=== PATIENT | male | born 1970 | race Caucasian/White ===

== ENCOUNTER 2016-09-26 06:58 | Emergency (ER) | payer MEDICAID ==
[2016-09-26] MEDS ORDERED: NAPROXEN 250 MG TABLET PO ONE (07:22)
--- NOTE | 2016-09-26 07:22 | Emergency Department Record ---
History of Present Illness - General Chief complaint: Extremity Problem Stated complaint: LT HAND PAIN AND ARM PIT PAIN Time Seen by Provider: 09/26/16 07:13 Source: Patient Mode of Arrival: Ambulatory Limitations: No limitations - History of Present Illness Initial comments: 46 yo male presents with left hand pain for several weeks that seems to be worse at night. He gets tingling in the index, middle and some on the ring finger. No new trauma. 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 No new trauma. Onset/Timin -: Week(s) Location: Left, Hand, Other History of Same: No Consistency: Intermittent Improves with: Nothing Worsens with: Other Associated Symptoms: Denies other symptoms - Related Data Home Medications Medication Instructions Recorded Confirmed Last Taken Methadone HCl 40 mg PO DAILY 09/26/16 09/26/16 Unknown Previous Rx's Medication Instructions Recorded Methylprednisolone [Medrol Dose 4 mg PO DAILY #1 tab.ds.[email or web address] 09/26/16 Pack] Naproxen [Naprosyn] 500 mg PO Q12H #30 tab. 09/26/16 Allergies Allergy/AdvReac Type Severity Reaction Status Date / Time sulfamethoxazole Allergy HIVES Verified 09/26/16 07:08 [From Bactrim] trimethoprim [From Bactrim] Allergy HIVES Verified 09/26/16 07:08 Travel Screening - Travel/Exposure Within Last 30 Days Have you traveled within the last 30 days?: No Review of Systems Constitutional: Denies: Chills, Fever, Malaise, Weakness Eyes: Denies: Eye discharge ENT: Denies: Congestion Respiratory: Denies: Cough Cardiovascular: Denies: Chest pain, Palpitations, Syncope Endocrine: Denies: Fatigue Gastrointestinal: Denies: Abdominal pain, Diarrhea, Nausea, Vomiting Genitourinary: Denies: Dysuria, Frequency, Hematuria Musculoskeletal: Reports: Myalgia. Denies: Arthralgia, Back pain Skin: Denies: Bruising, Change in color, Rash Neurological: Denies: Confusion, Headache, Numbness Psychiatric: Denies: Anxiety Hematological/Lymphatic: Denies: Blood Clots, Easy bleeding, Easy bruising Past Medical History - SOCIAL HISTORY Smoking Status: Current every day smoker Alcohol Use: Occassional Drug Use: None - RESPIRATORY Hx Respiratory Disorders: Yes Hx Pneumonia: Yes - CARDIOVASCULAR Hx Cardio Disorders: No - NEURO Hx Neuro Disorders: No - GI Hx GI Disorders: No - Hx Genitourinary Disorders: No - ENDOCRINE Hx Endocrine Disorders: No - MUSCULOSKELETAL Hx Musculoskeletal Disorders: No - PSYCH Hx Psych Problems: No - HEMATOLOGY/ONCOLOGY Hx Hematology/Oncology Disorders: No Family Medical History Any Significant Family History?: No Physical Exam - General General Appearance: Alert, Oriented x3, Cooperative, No acute distress Limitations: No limitations - Head Head exam: Normal inspection - Eye Eye exam: Normal appearance, PERRL. negative: Conjunctival injection, Periorbital swelling - ENT ENT exam: Normal exam, Mucous membranes moist Ear exam: Normal external inspection Nasal Exam: Normal inspection Mouth exam: Normal external inspection Teeth exam: Normal inspection - Neck Neck exam: Normal inspection, Full ROM. negative: Tenderness - Respiratory Respiratory exam: Normal lung sounds bilaterally. 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 negative: Tenderness - Back Back exam: Reports: Normal inspection, Full ROM. Denies: Muscle spasm, Rash noted, Tenderness - Neurological Neurological exam: Alert, Normal gait, Oriented X3, Reflexes normal - Psychiatric Psychiatric exam: Normal affect, Normal mood - Skin Skin exam: Dry, Intact, Normal color, Warm Course Vital Signs 09/26/16 07:01 Temperature 98.2 F Pulse Rate 80 Respiratory 12 Rate Blood Pressure 127/79 Pulse Ox 96 - Reevaluation(s) Reevaluation #1: The symptoms are likely carpal tunnel in nature No physical examination findings that are abnormal He will provided naprosyn, medrol and a splint 09/26/16 07:29 Disposition Disposition: Discharge Clinical Impression: Hand pain, left Condition: (1) Good Instructions: Carpal Tunnel Syndrome (ED), Carpal Tunnel Syndrome Exercises ( GEN) Additional Instructions: Use the splint for support and comfort Call to establish a new family doctor as you will need nursing home follow up Prescriptions: Methylprednisolone [Medrol Dose Pack] 4 mg PO DAILY #1 tab.ds.pk Naproxen [Naprosyn] 500 mg PO Q12H #30 tab.dr Forms: Patient Portal Access
== END 2016-09-26 07:45 | disposition home or self-care (01) ==
LOC: ER 06:58
DX: M79.642 Pain in left hand (principal); R20.2 Paresthesia of skin
CPT/HCPCS: 99282

== ENCOUNTER 2017-10-16 15:38 | Emergency (ER) | payer MEDICAID ==
--- NOTE | 2017-10-16 16:08 | Emergency Department Record ---
History of Present Illness - General Chief complaint: Extremity Problem Stated complaint: RT HAND/PALM PAIN Time Seen by Provider: 10/16/17 16:01 Source: Patient Mode of Arrival: Ambulatory Limitations: No limitations - History of Present Illness Initial comments: 47 yo male presents to ED for evaluation of intermittent pain symptoms to the ulnar aspect of the right hand. 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 Patient reports intermittent pain symptoms that resulting dropping objects or shooting pain resulting in inability to perform a task. Patient denies health problems at his baseline, just bought some Advil to take for his symptoms. MD Complaint: Extremity pain Onset/Timin -: Year(s) Location: Right, Hand History of Same: No Radiation: Proximal Severity scale (1-10): 3 Quality: Sharp Consistency: Intermittent Improves with: Nothing Worsens with: Nothing Associated Symptoms: Denies other symptoms - Related Data Previous Rx's Medication Instructions Recorded Prednisone [Prednisone 20Mg] 20 mg PO BID #15 tab 10/16/17 Allergies Allergy/AdvReac Type Severity Reaction Status Date / Time sulfamethoxazole Allergy HIVES Verified 10/16/17 16:00 [From Bactrim] trimethoprim [From Bactrim] Allergy HIVES Verified 10/16/17 16:00 Travel Screening - Travel/Exposure Within Last 30 Days Have you traveled within the last 30 days?: No Review of Systems Constitutional: Denies: Chills, Fever, Malaise, Night sweats Eyes: Denies: Eye discharge, Eye pain ENT: Denies: Congestion, Ear pain, Epistaxis Respiratory: Denies: Cough, Dyspnea Cardiovascular: Denies: Chest pain, Dyspnea on exertion Endocrine: Denies: Fatigue, Heat or cold intolerance Gastrointestinal: Denies: Abdominal pain, Nausea, Vomiting Genitourinary: Denies: Incontinence, Retention Musculoskeletal: Reports: Arthralgia. Denies: Back pain, Gout, Joint swelling Skin: Denies: Bruising, Change in color Neurological: Denies: Abnormal gait, Confusion, Headache, Seizure Psychiatric: Denies: Anxiety Hematological/Lymphatic: Denies: Anemia, Blood Clots Past Medical History - SOCIAL HISTORY Smoking Status: Current every day smoker Alcohol Use: None Drug Use: None - RESPIRATORY Hx Respiratory Disorders: Yes Hx Pneumonia: Yes - CARDIOVASCULAR Hx Cardio Disorders: No - NEURO Hx Neuro Disorders: No - GI Hx GI Disorders: No - Hx Genitourinary Disorders: No - ENDOCRINE Hx Endocrine Disorders: No - MUSCULOSKELETAL Hx Musculoskeletal Disorders: No - PSYCH Hx Psych Problems: No - HEMATOLOGY/ONCOLOGY Hx Hematology/Oncology Disorders: No Family Medical History Any Significant Family History?: No Physical Exam - General General Appearance: Alert, Oriented x3, Cooperative Limitations: No limitations - Head Head exam: negative: Atraumatic, Normocephalic, Normal inspection Head exam detail: negative: Abrasion, Contusion, De León's sign, General tenderness, Hematoma, Laceration - Eye Eye exam: Normal appearance. negative: Conjunctival injection, Periorbital swelling, Periorbital tenderness, Scleral icterus - ENT Ear exam: negative: Auricular hematoma, Auricular trauma Nasal Exam: negative: Active bleeding, Discharge, Dried blood, Foreign body Mouth exam: negative: Drooling, Laceration, Muffled voice, Tongue elevation - Neck Neck exam: Normal inspection. negative: Meningismus, Tenderness - Respiratory Respiratory exam: Normal lung sounds bilaterally. negative: Rales, Respiratory distress, Rhonchi, Stridor - Cardiovascular Cardiovascular Exam: Regular rate, Normal rhythm, Normal heart sounds Peripheral Pulses: 3+: Radial (R) - GI/Abdominal GI/Abdominal exam: Soft. negative: Rebound, Rigid, Tenderness - Rectal Rectal exam: Deferred - exam: Deferred - Extremities Extremities exam: Normal inspection, Full ROM, Other (Leave Manager strength 5/5 and symmetric, no pain on palpation, no erythema to suggest infection. Negative Tinel's/Phalens.). negative: Calf tenderness, Pedal edema, Tenderness - Back Back exam: Denies: CVA tenderness (R), CVA tenderness (L) - Neurological Neurological exam: Alert, Normal gait, Oriented X3 - Psychiatric Psychiatric exam: Normal affect, Normal mood - Skin Skin exam: Normal color. negative: Abrasion Type of lesion: negative: abrasion Course Vital Signs 10/16/17 15:57 Temperature 98.2 F Pulse Rate 65 Respiratory 20 Rate Blood Pressure 104/74 Pulse Ox 97 - Reevaluation(s) Reevaluation #1: 10/16/17 16:06 Examination of the right hand is essentially normal with normal pulse. no clinical evidence for CTS. Symptoms appear c/w tensonsynovitis or over-use type injury. Will initiate treatment with Prednisone and Advil as directed, recommended reduction in use of the right hand to allow healing to occur. Patient appears stable for discharge at this time. Disposition Disposition: Discharge Clinical Impression: Tenosynovitis of hand Disposition: Home, Self-Care Condition: (2) Stable Instructions: Tenosynovitis (ED) Additional Instructions: Return to ED if your symptoms worsen or if you have any concerns. Prednisone as directed. Follow-up with your family doctor in 3-5 days as directed. Prescriptions: Prednisone [Prednisone 20Mg] 20 mg PO BID #15 tab Time of Disposition: 16:09 Quality - Quality Measures Quality Measures: N/A - Blood Pressure Screening Does Patient Have Any of the Following: No Blood Pressure Classification: Normal BP Reading Systolic Measurement: 104 Diastolic Measurement: 74 Screening for High Blood Pressure: < Normal BP, F/U Not Required > [G8783]
== END 2017-10-16 16:32 | disposition home or self-care (01) ==
LOC: ER 15:38
DX: M65.841 Other synovitis and tenosynovitis, right hand (principal)
CPT/HCPCS: 99282

== ENCOUNTER 2018-04-30 14:49 | Emergency (ER) | payer MEDICAID ==
--- NOTE | 2018-04-30 15:09 | Emergency Department Record ---
History of Present Illness - General Chief complaint: Extremity Problem Stated complaint: RT THUMB NUMBNESS Time Seen by Provider: 04/30/18 14:58 Source: Patient Mode of Arrival: Ambulatory Limitations: No limitations - History of Present Illness Initial comments: The patient is here due to waking up from a one hour nap 30 minutes prior to presenting here and noticing that he was unable to extend the R thumb normally. He denies any R hand finger issues, numbness, tingling, or arm or wrist weakness. 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 There has been no visual changes, speech difficulties, balance issues, INMAN, neck pain, or fevers. The patient also denies any trauma or injury. He has no hx of similar issues or problems. MD Complaint: Other Onset/Timin -: Minutes(s) - Related Data Home Medications Medication Instructions Recorded Confirmed Last Taken Escitalopram Oxalate [Lexapro] 5 mg PO DAILY 04/30/18 04/30/18 04/29/18 Allergies Allergy/AdvReac Type Severity Reaction Status Date / Time sulfamethoxazole Allergy HIVES Verified 10/16/17 16:00 [From Bactrim] trimethoprim [From Bactrim] Allergy HIVES Verified 10/16/17 16:00 Travel Screening - Travel/Exposure Within Last 30 Days Have you traveled within the last 30 days?: No - Travel/Exposure Within Last Year Have you traveled outside the [place] in the last year?: No - Additonal Travel Details Have you been exposed to anyone with a communicable illness?: No - Travel Symptoms Symptom Screening: None Review of Systems Constitutional: Denies: Chills, Fever Eyes: Denies: Eye discharge ENT: Denies: Congestion Respiratory: Denies: Cough, Dyspnea Past Medical History - SOCIAL HISTORY Smoking Status: Current every day smoker Alcohol Use: Occasional Drug Use: None - RESPIRATORY Hx Respiratory Disorders: Yes Hx Pneumonia: Yes - CARDIOVASCULAR Hx Cardio Disorders: No - NEURO Hx Neuro Disorders: No - GI Hx GI Disorders: No - Hx Genitourinary Disorders: No - ENDOCRINE Hx Endocrine Disorders: No - MUSCULOSKELETAL Hx Musculoskeletal Disorders: No - PSYCH Hx Psych Problems: Yes Hx Depression: Yes - HEMATOLOGY/ONCOLOGY Hx Hematology/Oncology Disorders: No Family Medical History Any Significant Family History?: No Physical Exam - General General Appearance: Alert, Oriented x3, Cooperative, No acute distress - Head Head exam: Atraumatic, Normocephalic, Normal inspection - Eye Eye exam: Normal appearance, PERRL, EOMI. negative: Nystagmus - ENT Throat exam: Normal inspection. negative: Tonsillar erythema, Tonsillar exudate - Neck Neck exam: Normal inspection, Full ROM. negative: Lymphadenopathy, Meningismus , Tenderness - Respiratory Respiratory exam: Normal lung sounds bilaterally. negative: Respiratory distress - Cardiovascular Cardiovascular Exam: Regular rate, Normal rhythm, Normal heart sounds - GI/Abdominal GI/Abdominal exam: Soft, Normal bowel sounds. negative: Tenderness - Extremities Extremities exam: Normal inspection (The hands appear WNL's with no swelling, or erythema. ). negative: Full ROM (The patient is unable to fully extend the R thumb. The extension is present but slightly decreased from the opposite side. ), Joint swelling, Tenderness - Neurological Neurological exam: Alert, CN II-XII intact, Motor sensory deficit (The patient does have normal flexion of the R thumb but has slightly decreased extension at the DIP and MCP joints. He is able to extend but not quite like normal per the patient. Sensation is normal to the hands and fingers and thumbs.), Normal gait , Oriented X3, Reflexes normal (Neg Drift and Rhomberg exams.). negative: Abnormal gait, Altered - Psychiatric Psychiatric exam: Anxious. negative: Depressed Course Vital Signs 04/30/18 14:51 Temperature 98.4 F Pulse Rate 84 Respiratory 16 Rate Blood Pressure 129/81 Pulse Ox 97 - Reevaluation(s) Reevaluation #1: The patient is doing better at this time. His R thumb is working better presently and he is able to use it to swipe his phone with no difficulty. We are waiting on his official xray reports. 04/30/18 15:43 Reevaluation #2: The patient is doing a lot better presently. His R thumb is now back to normal and he is using it normally and has full extension. I did explain to him that I felt he may have had a mild R arm neuropraxia but I am very glad it has resolved. I also did discuss the mildly elevated LFT and the need for F/U. 04/30/18 16:14 Reevaluation #3: I also did discuss the old wrist issues with the patient and the need for F/U. 04/30/18 16:21 Medical Decision Making - Data Complexity MDM Data: Labs Ordered and/or Reviewed, X-Ray Ordered and/or Reviewed - Lab Data Result diagrams: 04/30/18 15:13 04/30/18 15:13 - Radiology Data Radiology results: Report reviewed (R hand: Neg for acute changes. Old wrist dz. Cervical Spine: Neg for acute changes.) Disposition Disposition: Discharge Clinical Impression: Neuropraxia of right upper extremity Qualifiers: Encounter type: initial encounter Qualified Code(s): S44.91XA - Injury of unspecified nerve at shoulder and upper arm level, right arm, initial encounter Disposition: Home, Self-Care Condition: (2) Stable Instructions: Neurapraxia (ED) Additional Instructions: Please continue your regular medicines and see your family doctor for recheck next week. Please also see your family doctor to have your mildly elevated liver enzyme rechecked. Return to the ER for any worsening symptoms or issues. Forms: Patient Portal Access Time of Disposition: 16:13 Quality - Quality Measures Quality Measures: N/A - Blood Pressure Screening View Details: Yes Does Patient Have Any of the Following: No Blood Pressure Classification: Pre-Hypertensive BP Reading Systolic Measurement: 141 Diastolic Measurement: 82 Screening for High Blood Pressure: < Pre-Hypertensive BP, F/U Documented > [ G8950] Pre-Hypertensive Follow-up Interventions: Referral to alternative/primary care provider.
[2018-04-30 15:16] LABS: BASO % 0.3 % (0-6); EOS % 1.5 % (0-6); GRAN % 62.1 % (47-80); HEMATOCRIT 42.8 % (42.0-52.0); HEMOGLOBIN 14.7 gm/dl (14.0-18.0); LYMPH % 29.7 % (16-45); MEAN CELL VOLUME 89.5 fl (81-97); MEAN CORPUSCULAR HEMOGLOBIN 30.8 pg (27-33); MEAN CORPUSCULAR HGB CONC 34.3 g/dl (32-36); MEAN PLATELET VOLUME 9.3 fl (7.4-10.4); MONO % 6.4 % (0-9); PLATELET COUNT 275 K/uL (130-400); RED BLOOD COUNT 4.78 M/uL (4.40-5.70); RED CELL DISTRIBUTION WIDTH 12.3 % (11.5-14.5); WHITE BLOOD COUNT W/O DIFF 7.9 K/uL (4.2-12.2)
[2018-04-30 15:27] LABS: BLOOD UREA NITROGEN 14 mg/dL (6-20); CREATININE 0.8 mg/dL (0.7-1.2); EST GLOMERULAR FILTRATION RATE > 60 mL/min; TOTAL PROTEIN 7.5 g/dL (6.6-8.7)
[2018-04-30 15:29] LABS: GLUCOSE,RANDOM 151 mg/dL (74-109)
[2018-04-30 15:32] LABS: ALB/GLOB RATIO 1.3 (1.1-1.8); ALBUMIN 4.3 g/dL (4.0-5.0); ALKALINE PHOSPHATASE 84 U/L (40-129); ALT/SGPT 56 U/L (<41); AST/SGOT 38 U/L (10.0-50.0)
--- NOTE | 2018-05-03 13:26 | RADIOLOGY REPORT ---
EXAM: RIGHT HAND HISTORY: RIGHT THUMB LOCKED IN PLACE. TECHNIQUE: Three views of the right hand were obtained. Comparison: None. Encounter: Initial. FINDINGS: The right hand demonstrates some mild soft tissue swelling involving the second and third fingers and probably also the proximal aspect of the fourth finger. No acute fracture, dislocation or destructive lesion involving the right hand identified, however, note is made of marked deformity in the region of the carpal lunate. Instead of the normal appearance of the lunate there appear to be several small bony densities present. This could be sequela of old injury or surgery and clinical correlation is suggested. There is probably bony cystic change in the capitate as well. Correlation with prior surgical or post traumatic wrist history suggested. With the absence of a normal lunate, the capitate has settled somewhat proximally between the navicular and triquetrum. IMPRESSION: 1. SOME SOFT TISSUE SWELLING INVOLVING THE RIGHT HAND. 2. THE RIGHT HAND ITSELF APPEARS OTHERWISE ESSENTIALLY NEGATIVE. 3. 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 SOME BONY CYSTIC CHANGE IN THE CAPITATE WELL. CORRELATION WITH PRIOR WRIST SURGICAL AND TRAUMATIC HISTORY IS SUGGESTED. IF NO SUCH HISTORY, FOLLOW-UP MRI OF THE RIGHT WRIST WOULD PROBABLY BE USEFUL IF NOT CONTRAINDICATED. COMPARISON WITH ANY OLD FILMS OF THE RIGHT HAND OR WRIST WOULD ALSO BE USEFUL IN THIS REGARD. JOB NUMBER: [id number] MTDD
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
== END 2018-04-30 16:17 | disposition home or self-care (01) ==
LOC: ER 14:49
DX: S44.91XA Injury of unspecified nerve at shoulder and upper arm level, right arm, initial encounter (principal); M79.641 Pain in right hand; R94.5 Abnormal results of liver function studies; F17.210 Nicotine dependence, cigarettes, uncomplicated; X58.XXXA Exposure to other specified factors, initial encounter
CPT/HCPCS: 72050; 80053; 85025; 99283; 99284

== ENCOUNTER 2019-01-01 08:00 | Emergency (ER) | payer MEDICAID ==
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
[2019-01-01 08:26] LABS: ABSOLUTE NEUTROPHIL COUNT 3.93; BASO % 0.7 % (0-6); EOS % 1.4 % (0-6); GRAN % 55.9 % (47-80); HEMATOCRIT 43.9 % (42.0-52.0); HEMOGLOBIN 15.1 gm/dl (14.0-18.0); LYMPH % 33.9 % (16-45); MEAN CELL VOLUME 90.7 fl (81-97); MEAN CORPUSCULAR HEMOGLOBIN 31.2 pg (27-33); MEAN CORPUSCULAR HGB CONC 34.4 g/dl (32-36); MONO % 8.1 % (0-9); PLATELET COUNT 264 K/uL (130-400); RED BLOOD COUNT 4.84 M/uL (4.40-5.70); RED CELL DISTRIBUTION WIDTH 12.7 % (11.5-14.5)
[2019-01-01 08:38] LABS: BLOOD UREA NITROGEN 15 mg/dL (6-20)
[2019-01-01 08:39] LABS: CREATININE 0.7 mg/dL (0.7-1.2); EST GLOMERULAR FILTRATION RATE > 60 mL/min; TOTAL PROTEIN 7.2 g/dL (6.6-8.7)
[2019-01-01 08:41] LABS: GLUCOSE,RANDOM 123 mg/dL (74-109)
[2019-01-01 08:44] LABS: ALB/GLOB RATIO 1.3 (1.1-1.8); ALBUMIN 4.1 g/dL (4.0-5.0); ALKALINE PHOSPHATASE 75 U/L (40-129); ALT/SGPT 30 U/L (<41); AST/SGOT 29 U/L (10.0-50.0)
[2019-01-01 08:50] LABS: URINE APPEARANCE CLEAR; URINE BILIRUBIN NEGATIVE (NEGATIVE); URINE BLOOD NEGATIVE (NEGATIVE); URINE COLOR YELLOW; URINE GLUCOSE (UA) NEGATIVE (NEGATIVE); URINE KETONE NEGATIVE (NEGATIVE); URINE LEUKOCYTE ESTERASE NEGATIVE (NEGATIVE); URINE NITRITE NEGATIVE (NEGATIVE); URINE PROTEIN NEGATIVE (NEGATIVE); URINE UROBILINOGEN 0.2 E.U./dL (0.20 - 1.00)
--- NOTE | 2019-01-02 13:46 | CT SCAN REPORT ---
EXAM: CT SCAN OF THE ABDOMEN AND PELVIS WITHOUT CONTRAST HISTORY: RIGHT SIDED FLANK PAIN AND BACK PAIN. SYMPTOMS FOR THE PAST MONTH. TECHNIQUE: Standard CT imaging of the abdomen and pelvis was performed without contrast. Comparison: None. FINDINGS: There is minor atelectasis or scarring at the lung bases, right greater than left. The liver, gallbladder, biliary tree, pancreas, spleen, and adrenal glands are normal. There is a 2 mm nonobstructing stone within the left kidney. A tiny cortical cyst is present within the medial cortex of the right kidney inferiorly. The kidneys and ureters are otherwise unremarkable. There is no hydronephrosis or obstructing calculus. The aorta is normal in caliber. There is no retroperitoneal lymphadenopathy. There are a few scattered diverticula within the sigmoid colon with no evidence for acute diverticulitis. The large and small bowel loops including the appendix are otherwise unremarkable. There is no pneumoperitoneum or ascites. The urinary bladder and prostate appear normal. Post surgical changes are present within the left inguinal region consistent with previous hernia repair. There is no recurrent hernia. Degenerative changes are present within the lumbar spine. There is very slight anterolisthesis of L4 on L5 which appears secondary to bilateral facet arthropathy. There are no acute osseous abnormalities. IMPRESSION: 1. NO ACUTE INTRAABDOMINAL PATHOLOGY. 2. 2 MM NONOBSTRUCTING STONE WITHIN THE LEFT KIDNEY. 3. TINY RIGHT RENAL CYST. 4. MILD SIGMOID DIVERTICULOSIS WITH NO DIVERTICULITIS. JOB NUMBER: [id number] [facility]
== END 2019-01-01 09:16 | disposition home or self-care (01) ==
LOC: ER 08:00
DX: R10.9 Unspecified abdominal pain (principal); F17.210 Nicotine dependence, cigarettes, uncomplicated
CPT/HCPCS: 74176; 80053; 81003; 85025; 99284

== ENCOUNTER 2019-04-15 14:32 | Emergency (ER) | payer SELFPAY ==
[2019-04-15 16:12] LABS: ABSOLUTE NEUTROPHIL COUNT 5.36; BASO % 0.5 % (0-6); EOS % 1.1 % (0-6); GRAN % 62.5 % (47-80); HEMOGLOBIN 14.6 gm/dl (14.0-18.0); LYMPH % 30.3 % (16-45); MEAN CELL VOLUME 90.7 fl (81-97); MEAN CORPUSCULAR HEMOGLOBIN 30.8 pg (27-33); MEAN PLATELET VOLUME 8.8 fl (7.4-10.4); MONO % 5.6 % (0-9); PLATELET COUNT 368 K/uL (130-400); RED BLOOD COUNT 4.74 M/uL (4.40-5.70); RED CELL DISTRIBUTION WIDTH 12.7 % (11.5-14.5); WHITE BLOOD COUNT W/O DIFF 8.6 K/uL (4.2-12.2)
[2019-04-15 16:20] LABS: BLOOD UREA NITROGEN 12 mg/dL (6-20); CREATININE 0.7 mg/dL (0.7-1.2); EST GLOMERULAR FILTRATION RATE > 60 mL/min
[2019-04-15 16:22] LABS: GLUCOSE,RANDOM 98 mg/dL (74-109)
[2019-04-15] MEDS ORDERED: IPRATROPIUM/ALBUTEROL (0.5MG/3MG) NEB INH ONE (16:27)
[2019-04-15] MEDS ORDERED: METHYLPREDNISOLONE PF 125MG/VIAL IVP ONE (17:41)
[2019-04-15] MEDS ORDERED: ALBUTEROL HFA 8 GM INHALER INH ONE (17:52)
--- NOTE | 2019-04-15 18:01 | Emergency Department Record ---
History of Present Illness - General Chief Complaint: Cough Stated Complaint: COUGH, Time Seen by Provider: 04/15/19 16:08 Source: Patient Mode of Arrival: Ambulatory Limitations: No limitations - History of Present Illness Initial Comments: pt has been sick for a week with a productive green cough and sob. he has a hx of mrsa pneumonia a few years ago and was in the hospital for a month MD Complaint: Cough, Nasal congestion Onset/Timin -: Days(s) Severity: Moderate Severity scale (1-10): 2 Consistency: Constant, Intermittent - Related Data Previous Rx's Medication Instructions Recorded Doxycycline Hyclate 100 mg PO BID #20 cap 04/15/19 Allergies Allergy/AdvReac Type Severity Reaction Status Date / Time sulfamethoxazole Allergy HIVES Verified 04/15/19 15:12 [From Bactrim] trimethoprim [From Bactrim] Allergy HIVES Verified 04/15/19 15:12 Travel Screening - Travel/Exposure Within Last 30 Days Have you traveled within the last 30 days?: No - Travel/Exposure Within Last Year Have you traveled outside the [place] in the last year?: No - Additonal Travel Details Have you been exposed to anyone with a communicable illness?: No - Travel Symptoms Symptom Screening: None Review of Systems Reviewed: No additional complaints except as noted below Constitutional: Reports: As per HPI. Denies: Chills, Fever, Malaise, Night sweats, Weakness, Weight change Eyes: Reports: As per HPI. Denies: Eye discharge, Eye pain, Photophobia, Vision change ENT: Reports: As per HPI. Denies: Congestion, Dental pain, Ear pain, Epistaxis, Hearing loss, Throat pain Respiratory: Reports: As per HPI. Denies: Cough, Dyspnea, Hemoptysis, Stridor, Wheezes Cardiovascular: Reports: As per HPI. Denies: Arrhythmia, Chest pain, Dyspnea on exertion, Edema, Murmurs, Orthopnea, Palpitations, Paroxysmal nocturnal dyspnea, Rheumatic Fever, Syncope Endocrine: Reports: As per HPI. Denies: Fatigue, Heat or cold intolerance, Polydipsia, Polyuria Gastrointestinal: Reports: As per HPI. Denies: Abdominal pain, Constipation, D iarrhea, Hematemesis, Hematochezia, Melena, Nausea, Vomiting Genitourinary: Reports: As per HPI. Denies: Dysuria, Frequency, Hematuria, Incontinence, Retention, Testicular pain, Testicular mass, Urgency Musculoskeletal: Reports: As per HPI. Denies: Arthralgia, Back pain, Gout, Joint swelling, Myalgia, Neck pain Skin: Reports: As per HPI. Denies: Bruising, Change in color, Change in hair/nails, Lesions, Pruritus, Rash Neurological: Reports: As per HPI. Denies: Abnormal gait, Confusion, Headache, Numbness, Paresthesias, Seizure, Tingling, Tremors, Vertigo, Weakness Psychiatric: Reports: As per HPI. Denies: Anxiety, Auditory hallucinations, Depression, Homicidal thoughts, Suicidal thoughts, Visual hallucinations Hematological/Lymphatic: Reports: As per HPI. Denies: Anemia, Blood Clots, Easy bleeding, Easy bruising, Swollen glands Past Medical History - SOCIAL HISTORY Smoking Status: Current every day smoker Alcohol Use: Rare, Occasional Drug Use: None - RESPIRATORY Hx Respiratory Disorders: Yes Hx Bronchitis: Yes Hx Pneumonia: Yes Comment:: MRSA in lungs - CARDIOVASCULAR Hx Cardio Disorders: No - NEURO Hx Neuro Disorders: No - GI Hx GI Disorders: No Hx Hepatitis/Jaundice: Yes (C, harboni treatment 5 years ago) - Hx Genitourinary Disorders: No - ENDOCRINE Hx Endocrine Disorders: No - MUSCULOSKELETAL Hx Musculoskeletal Disorders: No - PSYCH Hx Psych Problems: Yes Hx Anxiety: Yes Hx Depression: Yes - HEMATOLOGY/ONCOLOGY Hx Hematology/Oncology Disorders: No Family Medical History Any Significant Family History?: No Hx Cancer: Father, Brother/Sister, Grandparents Hx Liver Disease: Mother Physical Exam - General General Appearance: Alert, Oriented x3, Cooperative, Mild distress - Head Head exam: Normal inspection - Eye Eye exam: Normal appearance, PERRL, EOMI Pupils: Normal accommodation - ENT ENT exam: Normal exam, Mucous membranes moist, Normal external ear exam, Normal orophraynx Ear exam: Normal external inspection. negative: External canal tenderness Nasal Exam: Normal inspection. negative: Discharge, Sinus tenderness Mouth exam: Normal external inspection, Tongue normal Teeth exam: Normal inspection. negative: Dental caries Throat exam: Normal inspection. negative: Tonsillar erythema, Tonsillar exudate - Neck Neck exam: Normal inspection, Full ROM. negative: Tenderness - Respiratory Respiratory exam: Respiratory distress, Wheezes - Cardiovascular Cardiovascular Exam: Regular rate, Normal rhythm, Normal heart sounds - GI/Abdominal GI/Abdominal exam: Soft, Normal bowel sounds. negative: Tenderness - Rectal Rectal exam: Deferred - exam: Deferred - Extremities Extremities exam: Normal inspection, Full ROM, Normal capillary refill. negative: Tenderness - Back Back exam: Reports: Normal inspection, Full ROM. Denies: Muscle spasm, Rash noted, Tenderness - Neurological Neurological exam: Alert, Normal gait, Oriented X3, Reflexes normal - Psychiatric Psychiatric exam: Normal affect, Normal mood - Skin Skin exam: Dry, Intact, Normal color, Warm Course Vital Signs 04/15/19 04/15/19 04/15/19 15:05 16:30 17:38 Temperature 98.3 F 98.4 F Pulse Rate 76 58 L Pulse Rate [ 59 L Pulse Ox Probe] Respiratory 18 18 17 Rate Blood Pressure 112/85 Blood Pressure 117/76 [Left Arm] Pulse Ox 96 99 97 - Reevaluation(s) Reevaluation #1: 04/15/19 18:01 cxr shows possible pneumonia Medical Decision Making - Lab Data Result diagrams: 04/15/19 16:00 04/15/19 16:00 Lab Results 04/15/19 04/15/19 Range/Units 16:00 16:00 WBC 8.6 (4.2-12.2) K/uL RBC 4.74 (4.40-5.70) M/uL Hgb 14.6 (14.0-18.0) gm/dl Hct 43.0 (42.0-52.0) % MCV 90.7 (81-97) fl MCH 30.8 (27-33) pg MCHC 34.0 (32-36) g/dl RDW 12.7 (11.5-14.5) % Plt Count 368 (130-400) K/uL MPV 8.8 (7.4-10.4) fl Gran % 62.5 (47-80) % Lymphocytes % 30.3 (16-45) % Monocytes % 5.6 (0-9) % Eosinophils % 1.1 (0-6) % Basophils % 0.5 (0-6) % Absolute Neutrophils 5.36 Sodium 139 (136-145) mmol/L Potassium 4.5 (3.4-4.5) mmol/L Chloride 102 (98-107) mmol/L Carbon Dioxide 25.0 (22-29) mmol/L Anion Gap 12.0 (7-16) BUN 12 (6-20) mg/dL Creatinine 0.7 (0.7-1.2) mg/dL Estimated GFR > 60 mL/min Random Glucose 98 (74-109) mg/dL Calcium 9.5 (8.6-10.0) mg/dL Disposition Disposition: Discharge Clinical Impression: Pneumonia Qualifiers: Pneumonia type: due to unspecified organism Laterality: bilateral Lung location: lower lobe of lung Qualified Code(s): J18.1 - Lobar pneumonia, unspecified organism Disposition: Home, Self-Care Condition: (1) Good Instructions: Pneumonia (ED) Additional Instructions: follow up with family doctor. return sooner if worse. rest. push fluids Prescriptions: Doxycycline Hyclate 100 mg PO BID #20 cap Quality - Quality Measures Quality Measures: N/A - Blood Pressure Screening Does Patient Have Any of the Following: No Blood Pressure Classification: Pre-Hypertensive BP Reading Systolic Measurement: 112 Diastolic Measurement: 85 Screening for High Blood Pressure: < Pre-Hypertensive BP, F/U Documented > [G8950] Pre-Hypertensive Follow-up Interventions: Follow-up with rescreen every year.
[2019-04-15] MEDS ORDERED: DOXYCYCLINE HYCLATE 100 MG CAPSULE PO SCH (22:00)
--- NOTE | 2019-04-17 13:18 | RADIOLOGY REPORT ---
EXAM: CHEST, TWO VIEWS HISTORY: PATIENT HAS A HISTORY OF COUGH. TECHNIQUE: Two views of the chest are provided along with the comparison x-ray of the cervical spine dated 04/30/18. FINDINGS: The cardiomediastinal silhouette is within normal limits for size and contour. The teresita appear unremarkable. There is pleural thickening identified within the right lung apex which can be visualized on the prior x-ray of the cervical spine. Interstitial prominence in this region is also visualized on the prior examination suggesting fibrotic changes at this location. In addition there is blunting of the right costophrenic angle on the PA projection which may represent pleural thickening. Lateral projection demonstrates a small left sided pleural effusion and/or pleural thickening. No focal consolidation or pneumothorax is noted. IMPRESSION: 1. CHRONIC FIBROTIC CHANGES ARE IDENTIFIED WITHIN THE RIGHT LUNG APEX. 2. PROBABLE PLEURAL THICKENING WITHIN THE RIGHT COSTOPHRENIC ANGLE. 3. BLUNTING OF THE LEFT POSTERIOR COSTOPHRENIC ANGLE SUGGESTS A SMALL PLEURAL EFFUSION WITH POSSIBLE MILD LEFT POSTERIOR LOWER LOBE ATELECTASIS AND/OR INFILTRATE. JOB NUMBER: [id number] [facility]
== END 2019-04-15 18:43 | disposition home or self-care (01) ==
LOC: ER 14:32
DX: J18.1 Lobar pneumonia, unspecified organism (principal); F17.210 Nicotine dependence, cigarettes, uncomplicated
CPT/HCPCS: 71046; 80048; 85025; 94640; 94664; 96374; 99284; J2930

== ENCOUNTER 2019-07-20 14:52 | Emergency (ER) | payer SELFPAY | END 2019-07-20 15:52 | disposition left against medical advice (07) | LOC: ER 14:52 | DX: Z53.20 Procedure and treatment not carried out because of patient's decision for unspecified reasons (principal) ==